=== PATIENT | female | born 1965 | race Caucasian/White ===

== ENCOUNTER → 2016-09-07 | Outpatient (CLI) | payer OTHER | LOC: FIMAGING 10:54 | DX: Z12.31 Encounter for screening mammogram for malignant neoplasm of breast (principal) | CPT/HCPCS: G0202 ==

== ENCOUNTER → 2017-09-13 | Outpatient (CLI) | payer OTHER | LOC: FIMAGING 10:56 | PROVIDERS: ATTEND Physician Assistant | DX: Z12.31 Encounter for screening mammogram for malignant neoplasm of breast (principal) ==

== ENCOUNTER → 2018-10-10 | Outpatient (CLI) | payer OTHER | LOC: FIMAGING 10:54 ==